=== PATIENT | male | born 1960 | race African-American/Black ===

== ENCOUNTER → 2020-06-15 | Outpatient (CLI) | payer OTHER ==
--- NOTE | 2020-06-16 08:08 | MM ---
Reason for exam: clinical finding. Physical Findings: Nurse Summary: 3.5cm nodule in the right breast at the nipple (nurse dw). MG Diagnostic Mammo w CAD REE Bilateral CC and MLO view(s) were taken. Finding: There is a 36 mm oval mass in the subareolar position of the right breast. These results were verbally communicated with the patient and result sheet given to the patient on 06/15/20. ASSESSMENT: Suspicious, BI-RAD 4 RECOMMENDATION: Stereotactic core biopsy of the right breast. Called office with mammographic findings and has scheduled an appointment for the patient for 06/24/20 at 12:[address] Samaniego. Biopsy scheduled for 07/01/20 at 9:30. PRELIMINARY REPORT CALLED AND FAXED TO DR. SAMANIEGO ON 06/16/20.
--- NOTE | 2020-06-16 08:10 | USB ---
Reason for exam: clinical finding. US Breast Limited BILAT Right limited breast ultrasound including focal area of concern, retroareolar and axilla demonstrates a 3.6 x 3.0 x 2.2cm hypoechoic lesion at the posterior nipple. Left limited breast ultrasound including focal area of concern, retroareolar and axilla demonstrates no cystic or solid lesion seen. These results were verbally communicated with the patient and result sheet given to the patient on 06/15/20. ASSESSMENT: Suspicious, BI-RAD 4 RECOMMENDATION: Surgical consultation and ultrasound core biopsy of the right breast. Called office with mammographic findings and has scheduled an appointment for the patient for 06/24/20 at 12:[address] Samaniego. Biopsy scheduled for 07/01/20 at 9:30. PRELIMINARY REPORT CALLED AND FAXED TO DR. SAMANIEGO ON 06/16/20.
== END | disposition home or self-care (01) ==
LOC: RADMAMWWP 07:39
DX: N63.10 Unspecified lump in the right breast, unspecified quadrant (principal)
CPT/HCPCS: 77066

== ENCOUNTER → 2020-07-01 | Outpatient (CLI) | payer OTHER ==
--- NOTE | 2020-07-01 10:07 | P.GSHP ---
History of Present Illness H&P Date: 07/01/20 Chief Complaint: Abnormal mammogram/ultrasound right breast There is a 60-year-old -[place] gentleman seen in consultation for Dr. Henry from the [facility] with a complaint of an abnormal right breast mammogram and ultrasound. These showed a lesion behind his right nipple. He felt a lump in his right breast approximately 1 month ago. It is not painful. He denies any nipple discharge or skin changes. Has never had anything like that in the past. He has no history of any infection or trauma to the breast. He has an irregular heart beat and they are preparing to do a procedure for this. This is scheduled for August. The patient was recently started on Eliquis at least until after the cardiac procedure is performed. He has not taken this for approximately a week. Caffeine: 1 cup every other day Nicotine: Half a pack per day for 20 years chocolate: weekly Family history: Negative Medical history: irregular heart beat Surgical History: none Social History: smoke: 1/2 PPD for 20 years alcohol: none drugs: none - Constitutional Constitutional: Denies chills, Denies fever - EENT Eyes: denies blurred vision, denies pain Ears: deny: decreased hearing, tinnitus Ears, nose, mouth and throat: Denies headache, Denies sore throat - Breasts Breasts: bilateral: as per HPI - Cardiovascular Cardiovascular: Denies chest pain, Denies shortness of breath - Respiratory Respiratory: Denies cough, Denies 7 - Gastrointestinal Gastrointestinal: Denies abdominal pain, Denies diarrhea, Denies nausea, Denies vomiting - Genitourinary (Male) Genitourinary: Denies dysuria, Denies hematuria - Musculoskeletal Musculoskeletal: Reports myalgias - Integumentary Integumentary: Denies pruritus, Denies rash - Neurological Neurological: Denies numbness, Denies weakness - Psychiatric Psychiatric: Denies anxiety, Denies depression - Endocrine Endocrine: Denies fatigue, Denies weight change - Hematologic/Lymphatic Comment: none - Allergic/Immunologic Allergic/Immunologic: Reports as per HPI Medications and Allergies Home Medications Medication Instructions Recorded Confirmed Type Apixaban [Eliquis] 5 mg PO DAILY 06/29/20 06/29/20 History Atorvastatin [Lipitor] 20 mg PO DAILY 06/29/20 06/29/20 History Furosemide [Lasix] 40 mg PO DAILY 06/29/20 06/29/20 History Metoprolol Tartrate [Lopressor] 100 mg PO BID 06/29/20 06/29/20 History Allergies Allergy/AdvReac Type Severity Reaction Status Date / Time No Known Allergies Allergy Verified 06/28/20 15:43 Surgical - Exam - General well developed, well nourished, no distress - Eyes normal ocular movement - ENT no hearing loss, no congestion - Neck no masses, trachea midline - Respiratory normal respiratory effort, clear to auscultation - Cardiovascular Heart Sounds: normal: S1, S2 - Abdomen Abdomen: soft, non tender, no guarding, no rigid, no rebound - Genitourinary no masses on testicular exam normal penis with no external lesions, testicles present - Integumentary normal turgor - Neurologic no disoriented, no combative - Musculoskeletal normal gait, normal posture - Psychiatric oriented to time, oriented to person, oriented to place, speech is normal, memory intact breast exam: inspection: Nodule right breast approximately 3 cm x 4 cm in size Palpation: right breast: Examination reveals approximately 3-4 cm firmness in the subareolar area. The right axilla: No adenopathy of concern Left breast: No dominant masses or nodules of concern Left axilla: Shoddy adenopathy Results Mammogram and ultrasound results reviewed Assessment and Plan Assessment: Impression: 1. Right breast Mass. 2. Abnormal right breast mammogram and ultrasound 3. Irregular heartbeat/scheduled for cardiac procedure Plan: 1. Biopsy right breast mass by ultrasound guidance 2. Follow-up after core biopsy 3. We will restart Eliquis after the procedure Risk and benefits of the procedure discussed with the patient. CC: Dr. Henry, [facility] encounter 25 minutes, > 50% of time in planning and counselling
[2020-07-01 11:36] VITALS: BP 148/89; PULSE 84; RESP 12; TEMP 98
== END | disposition home or self-care (01) ==
LOC: WWCWWP 09:19
PROVIDERS: ATTEND Surgery
DX: Z53.9 Procedure and treatment not carried out, unspecified reason (principal)

== ENCOUNTER → 2020-07-01 | Day surgery (SDC) | payer OTHER ==
[2020-07-01 10:16] VITALS: RESP 16
[2020-07-01 11:19] VITALS: BP 144/88; PULSE 77; TEMP 98.1
--- NOTE | 2020-07-01 20:12 | USB ---
EXAMINATION TYPE: US breast aspiration single RT DATE OF EXAM: 07/01/2020 CLINICAL HISTORY: R92.8 ABN MAMMO. Palpable abnormality right breast retroareolar area TECHNIQUE: Vacuum assisted cyst aspiration through an 18-gauge needle COMPARISON: 06/15/2020 ultrasound, 06/15/2020 mammogram FINDINGS: The ultrasound guided core biopsy procedure was explained to the patient. The risks, benefits, alternatives were discussed. An informed consent was then obtained. Timeout was performed. The patient was placed in supine positioning for imaging and for the procedure. The overlying skin was prepped with betadine and sterilely draped in usual sterile fashion. Lidocaine 1% was used as anesthetic into the skin and deeper breast tissue up to area of concern in the breast. Fluidlike swelling was noted within the lesion raising the suspicion of a complex cyst. This appeared very hard on scanning although cyst aspiration was then attempted. Under ultrasound guidance, a 20 mL syringe with an 18-gauge needle was placed into the lesion. With suction there was immediate collapse and easy withdrawal of a pus yellow fluid. Maximum decompression of this lesion was performed. Sample was labeled and transferred to pathology for additional evaluation. No marker was placed. Good hemostasis was obtained with direct pressure. Discharge instructions were discussed with the patient. The patient will follow up with the referring physician for results. The patient tolerated the procedure well without any immediate complication. The patient was discharged to home in stable condition. The findings were relayed to the referring surgeon in person by Dr. Pleitez. IMPRESSION: 1. Successful ultrasound guided cyst aspiration of a right subareolar abscess. Recommendations: 1. Antibiotic therapy with follow-up ultrasound in approximately 1 month. This can be performed earlier this reoccurrence appears or swelling is noted. Pathology Results: Benign RIGHT BREAST CYST, ASPIRATION: Acute suppurative inflammation (pus) with bacterial organisms and degenerated debris. Recommendation Surgical consult of the right breast. Surgical consult for possible right breast abscess. [facility]
== END ==
LOC: RADUSWWP 09:08
PROVIDERS: ATTEND Surgery
DX: N60.01 Solitary cyst of right breast (principal)
CPT/HCPCS: 88108; 88305; 76942; 19000; J2001